=== PATIENT | female | born 1980 | race Caucasian/White ===

== ENCOUNTER 2022-06-28 14:32 | Outpatient (CLI) | payer OTHER | END 2022-06-28 14:33 | disposition home or self-care (01) | LOC: CSHLAB 14:32 | PROVIDERS: ATTEND Obstetrics & Gynecology | DX: Z01.812 Encounter for preprocedural laboratory examination (principal); N80.03 Adenomyosis of the uterus; N92.0 Excessive and frequent menstruation with regular cycle; N81.10 Cystocele, unspecified; N81.6 Rectocele | CPT/HCPCS: 80048; 84703; 85027; 86850; 86900; 86901 ==

== ENCOUNTER 2022-06-30 10:36 | Day surgery (SDC) | payer OTHER ==
[2022-06-28 14:43] VITALS: BMI 31.4
[2022-06-28 15:19] LABS: Hemoglobin 14.6 g/dL (12.0-15.5); Mean Corpuscular HGB CONC 35.4 g/dL (32.0-36.0); Mean Platelet Volume 9.5 fl (7.4-10.4); Platelet Count 343 10x3/uL (150-450); RBC Distribution Width 13.3 % (11.5-14.5); Red Blood Cell (RBC) Count 4.29 10x6/uL (3.90-5.03); White Blood Cell (WBC) Count 10.1 10x3/uL (3.5-10.5)
[2022-06-28 15:47] LABS: Anion Gap 12 mmol/L (10-20); BUN (Urea Nitrogen) 8 mg/dL (7.0-18.7); Calc. Creatinine Clearance 0 mL/min (70-130); Calcium 9.2 mg/dL (7.8-10.44); Carbon Dioxide 24 mmol/L (22-29); Chloride 105 mmol/L (98-107); Estimated GFR 85; Glucose 103 mg/dL (70-105); Potassium 4.2 mmol/L (3.5-5.1); Sodium 137 mmol/L (136-145)
[2022-06-28 15:55] LABS: BHCG - Serum Negative (NEGATIVE); Pregs Control Background? CLEAR/WHITE (CLR/WHITE); Pregs Control Bar Appear? YES (CONTROL BAR)
[2022-06-30] MEDS ORDERED: CeleCOXIB 100 MG CAP ONE (11:11)
[2022-06-30] MEDS ORDERED: Gabapentin 300 MG CAP ONE (11:11)
[2022-06-30] MEDS ORDERED: Famotidine/PF 20 mg/2ml Vial ONE (11:11)
[2022-06-30] MEDS ORDERED: Bupivacaine PF 0.5% 30 ML VIAL ONE (11:54)
[2022-06-30] MEDS ORDERED: EPINEPHrine 1 MG/ML AMP ONE (11:54)
[2022-06-30] MEDS ORDERED: PROPOFOL 20 ML ONE (11:59)
[2022-06-30] MEDS ORDERED: Fentanyl 100 MCG/2 ML VIAL ONE ×3 (11:59→14:15)
[2022-06-30] MEDS ORDERED: CEFAZOLIN 2 GM VIAL ONE (12:25)
[2022-06-30] MEDS ORDERED: Ondansetron PF 4 MG/2 ML Vial ONE (13:15)
[2022-06-30] MEDS ORDERED: SUGAMMADEX SODIUM 200 MG/2 ML VIAL ONE (13:15)
[2022-06-30] MEDS ORDERED: PHENYLEPHRINE-NS 100 MCG/ML 10 ML SYRINGE ONE (13:30)
[2022-06-30] MEDS ORDERED: Ketorolac Tromethamine 30 MG/ML VIAL ONE (14:15)
[2022-06-30] MEDS ORDERED: HYDROcodone/Acetaminophen 5/325 mg Tablet ONE (15:58)
== END 2022-06-30 16:35 | disposition home or self-care (01) ==
LOC: CSHSDC 10:36
PROVIDERS: ATTEND Obstetrics & Gynecology
PROC: 0UT74ZZ Resection of Bilateral Fallopian Tubes, Percutaneous Endoscopic Approach (ICD-10-PCS; principal; 2022-06-30)
PROC: 0UT94ZZ Resection of Uterus, Percutaneous Endoscopic Approach (ICD-10-PCS; principal; 2022-06-30)
DX: D25.9 Leiomyoma of uterus, unspecified (principal); N94.6 Dysmenorrhea, unspecified; N81.89 Other female genital prolapse; N73.6 Female pelvic peritoneal adhesions (postinfective); N88.8 Other specified noninflammatory disorders of cervix uteri; N87.0 Mild cervical dysplasia; N92.0 Excessive and frequent menstruation with regular cycle; N81.6 Rectocele; N81.10 Cystocele, unspecified; N80.03 Adenomyosis of the uterus; N94.10 Unspecified dyspareunia; E66.9 Obesity, unspecified; E03.9 Hypothyroidism, unspecified; E78.5 Hyperlipidemia, unspecified; Z79.899 Other long term (current) drug therapy; Z90.49 Acquired absence of other specified parts of digestive tract; Z68.31 Body mass index [BMI] 31.0-31.9, adult
CPT/HCPCS: 80048; 84703; 85027; 86850; 86900; 86901; 88307; C1776; J0171; J1885; J2405; J2704; J3010; S0020; S0028